=== PATIENT | male | born 1950 | race Caucasian/White ===

== ENCOUNTER 2020-03-10 18:19 | Emergency (ER) | payer OTHER, MEDICAID ==
[~2020-03-10] VITALS: Ht 177.8 cm; Wt 70.0 kg
--- NOTE | 2020-03-10 18:29 | PHYS DOC ---
General Adult EDM: Chief Complaint: HEAD INJURY/TRAUMA HPI: HPI: History obtained from caregiver. Patient is a 69-year-old male who has a history of autism who presents with complaint of fall. Caregiver states he was showering when she heard him fall to the ground. She states that when she arrived he had blood dripping from a cut to his right forehead. She denies loss of consciousness. He does not take blood thinners other than aspirin. Does have history of colon cancer that is been treated and is currently in remission. She does note he has a history of seizures with the last one occurred 20 years ago. She does not have suspicion for seizure at this time. She states he is currently acting at his baseline. Patient reports some mild head pain overlying his laceration site. Denies chest pain or shortness of breath. Denies back pain. Does live at home with caregivers and foster family. He does have 24/ supervision. Review of Systems: Review of Systems: Constitutional: Denies fever or chills. [] Eyes: Denies change in visual acuity. [] HENT: Denies nasal congestion or sore throat. [] Respiratory: Denies cough or shortness of breath. [] Cardiovascular: Denies chest pain or edema. [] GI: Denies abdominal pain, nausea, vomiting, bloody stools or diarrhea. [] : Denies dysuria. [] Musculoskeletal: Positive for fall Integument: Positive for laceration Neurologic: Denies headache, focal weakness or sensory changes. [] Endocrine: Denies polyuria or polydipsia. [] Lymphatic: Denies swollen glands. [] Psychiatric: Denies depression or anxiety. [] Heart Score: Risk Factors: Risk Factors: DM, Current or recent (<one month) smoker, HTN, HLP, family history of CAD, obesity. Risk Scores: Score 0 - 3: 2.5% MACE over next 6 weeks - Discharge Home Score 4 - 6: 20.3% MACE over next 6 weeks - Admit for Clinical Observation Score 7 - 10: 72.7% MACE over next 6 weeks - Early Invasive Strategies Current Medications: Current Medications Medications (Trade) Dose Ordered Sig/Antionette Start Time Stop Time Status Last Admin Dose Admin Lidocaine/ Epinephrine (LIDOCAINE 1%-EPI 1:100,000 Multi-Dose) 20 ml 1X ONCE 03/10/20 18:30 03/10/20 18:31 UNV Physical Exam: PE: Physical Exam Trauma: Primary Survey: Airway: Intact. Speaks in normal voice and phonation. Breathing: Breath sounds are clear and equal bilaterally. Circulation: Regular rhythm, 2+ and symmetric radial, DP and PT pulses. Disability: GCS on arrival was 15. Pupils 3 mm, ERRL Exposure: Complete exposure obtained and described in detail below. Secondary Survey: General: Awake, alert, appropriate, and in no acute distress HENT: 2.5 cm linear laceration noted to the right forehead. TMs clear bilaterally, no hemotympanum. No periorbital tenderness or deformity. No obvious craniofacial trauma. Midface is stable. No apparent dental or tongue/oropharyngeal injury. No septal hematoma. Neck: C-spine: no midline tenderness. Without step-off, deformity, abrasion, ecchymosis, or other signs of trauma. Paraspinal musculature with no tenderness and/or hypertonicity. Eyes: Pupils 3 mm ERRL, EOMI grossly, no evidence of ocular trauma, conjunctivae normal Respiratory: CTAB without wheezing, rhonchi, or rales. No distress. Chest wall with no tenderness to palpation. No crepitus, ecchymosis, or flail segment present. Cardiovascular: Regular rhythm without murmurs noted. 2+ and symmetric radial, DP and PT pulses. GI: Soft, non-tender, non-distended Musculoskeletal: T-spine: no midline tenderness. Without step-off, deformity, abrasion, ecchymosis, or other signs of trauma. Paraspinal musculature with no tenderness and/or hypertonicity. L-spine: no midline tenderness. Without step-off, deformity, abrasion, ecchymosis, or other signs of trauma. Paraspinal musculature with no tenderness and/or hypertonicity. RUE: Active ROM, no obvious deformity, no gross weakness or sensory deficits, warm & well-perfused LUE: Active ROM, no obvious deformity, no gross weakness or sensory deficits, warm & well-perfused RLE: Active ROM, no obvious deformity, no gross weakness or sensory deficits, warm & well-perfused LLE: Active ROM, no obvious deformity, no gross weakness or sensory deficits, warm & well-perfused Integument: Without abrasions, contusions, or lacerations. Neurologic: GCS on arrival as noted above. No obvious focal motor or sensory deficits on examination. Gait not assessed due to acuity of trauma assessment. Current Patient Data: Vital Signs: Vital Signs Date Time Temp Pulse Resp B/P (MAP) Pulse Ox O2 Delivery O2 Flow Rate FiO2 03/10/20 18:24 97.7 68 18 129/79 (96) 97 Room Air 97.7 EKG: EKG: [] Radiology/Procedures: Radiology/Procedures: [] Laceration Repair: Obtained verbal consent from patient. Time out done prior to procedure. No sedation was required. 1 Laceration(s) to right forehead. Sterile drape fashioned, following sterile procedure. Procedure: Laceration Repair Length: 3 cm Description: Clean wound edges Mechanism: Fall, blunt object Shape: Linear Complex: no The wound area was prepped and draped in a sterile fashion. The wound area was anesthetized with 1% lidocaine with epinephrine The wound was explored with the following results no signs of subgaleal involvement.. The wound was repaired with 6; 5-0 nylon sutures were used. The wound was dressed cleanly. The patient tolerated the procedure well. [facility] [address] [place] [address] IMAGING REPORT Signed PATIENT: CLEMENTE OLIVEROS DACCOUNT: [id number] : 1950 LOCATION: ER AGE: 69 SEX: M EXAM STATUS: REG ER ORD. PHYSICIAN: MARTHA KWAN DO REASON: fall PROCEDURE: CHEST AP ONLY INDICATION: Reason: fall / Spl. Instructions: / History: COMPARISON: None. FINDINGS: Single view of chest obtained. Mild hypoexpansion with mildly prominent cardiac silhouette. There is some widening of the coracoclavicular distance on the right compared to the left. On the right this measures 15 mm and on the left this measures 8mm. There is angulation of some of the right RIBS including the fifth and 6 posteriorly. No focal airspace consolidation. IMPRESSION: * No focal airspace consolidation. * There is angulation of a couple of the right ribs posteriorly. Could be secondary to a fracture of unknown age. Would correlate with symptoms in the area. * Widening of the right coracoclavicular distance in comparison to left which could be seen with coracoclavicular ligament injury of unknown age. Correlate for symptoms in the region. Electronically signed by: Tobi Prieto MD (03/10/2020 8:11 PM) [id number] DICTATED and SIGNED BY: TOBI PRIETO MD DATE: 03/10/202010 [facility] [address] [place] [address] IMAGING REPORT Signed PATIENT: CLEMENTE OLIVEROS DACCOUNT: [id number] : 1950 LOCATION: ER AGE: 69 SEX: M EXAM STATUS: REG ER ORD. PHYSICIAN: MARTHA KWAN DO REASON: fall, RT HIP PAIN PROCEDURE: PELVIS Exam: Pelvis 1 view INDICATION: Fall, right hip pain TECHNIQUE: Frontal view of the pelvis Comparisons: None FINDINGS: Bone mineralization is normal. No acute or healed fractures. There is mild to moderate osteoarthritic change at the hip joints bilaterally. Soft tissues are unremarkable. IMPRESSION: No acute osseous abnormality identified. Electronically signed by: Temi Coyne MD (03/10/2020 8:11 PM) [facility] DICTATED and SIGNED BY: TEMI COYNE MD DATE: 03/10/202010 [facility] [address] [place] [address] IMAGING REPORT Signed PATIENT: CLEMENTE OLIVEROS DACCOUNT: [id number] : 1950 LOCATION: ER AGE: 69 SEX: M EXAM STATUS: REG ER ORD. PHYSICIAN: MARTHA KWAN DO REASON: fall, HEAD INJURY PROCEDURE: CT HEAD AND CERVICAL SPINE WO CT scan of the head without contrast 03/10/2020 Clinical History: Fall with head injury. Technique: Unenhanced, contiguous, 5 mm axial sections were obtained through the head. One or more of the following individualized dose reduction techniques were utilized for this study: 1. Automated exposure control. 2. Adjustment of the mA and/or kV according to patient size. 3. Use of iterative reconstruction technique. Findings: There is generalized parenchymal atrophy. Areas of decreased attenuation are seen within the periventricular and subcortical white matter of both cerebral hemispheres consistent with areas of small vessel ischemic disease. No acute parenchymal abnormality is seen. No extra-axial fluid collection is noted. No skull fracture is seen. Bilateral phthisis bulbi is noted. Impression: No acute intracranial abnormality is seen. CT scan of the cervical spine without contrast 03/10/2020 Clinical history: Fall with neck injury. Technique: Unenhanced, contiguous, 0.625 mm axial sections were obtained through the cervical spine. Axial, coronal and sagittal reconstructed images were obtained. One or more of the following individualized dose reduction techniques were utilized for this study: 1. Automated exposure control. 2. Adjustment of the mA and/or kV according to patient size. 3. Use of iterative reconstruction technique. Findings: Sagittal and coronal reconstructed images demonstrate straightening of the normal cervical lordosis. Degenerative changes consisting of varying degrees of disc space narrowing, vertebral endplate sclerosis and mild to moderate anterior and posterior vertebral body osteophyte formation are seen throughout the cervical disc spaces. Atherosclerotic calcification is seen in the region of the carotid bifurcations No fracture or subluxation of the cervical vertebrae seen. Degenerative changes are seen involving the uncovertebral and facet joints throughout the cervical disc spaces. Impression: No fracture or subluxation of the cervical vertebra is identified. Electronically signed by: Jhonathan Saldaña MD (03/10/2020 7:13 PM) [id number] DICTATED and SIGNED BY: JHONATHAN SALDAÑA MD DATE: 03/10/201912 Course & Med Decision Making: Course & Med Decision Making Pertinent Labs and Imaging studies reviewed. (See chart for details) [] Patient is a very pleasant 69-year-old male who presents with complaint of head laceration status post mechanical fall. Initial vital signs unremarkable. Laceration repaired at bedside. See procedure note for further details. CT imaging of the head and neck without acute traumatic injury. Chest x-ray did show rib abnormality on the right. No overlying point tenderness appreciated on exam. Likely chronic in nature. At this time I do for the patient's appropriate for discharge home. He does have 24/7 care and supervision at home. Return precautions were discussed and understood by the patient's caregiver. Instructed to follow-up with his primary care physician in the next 2 to 3 days. Stable for discharge. Dragon Disclaimer: Candi Disclaimer: This electronic medical record was generated, in whole or in part, using a voice recognition dictation system. Departure Departure Impression: Primary Impression: Fall Qualified Codes: W19.XXXA - Unspecified fall, initial encounter Additional Impression: Laceration of head Qualified Codes: S01.01XA - Laceration without foreign body of scalp, initial encounter Disposition: DC HOME SELF CARE/HOMELESS Condition: STABLE Patient Instructions: Laceration Care, Adult Additional Instructions: Please follow-up with your primary care physician in the next 2 to 3 days. [facility] [address] [place] [address] [facility] [address] [place] [address] [facility] [address] [place] [address] [facility] [address] [place] [address] [facility] [address] [place] [address] [address] [place] [address] [facility] [address] [place] [address] [facility] [address] [place] [address] [facility] [address] [place] [address] [facility] [address] [place] [address] MARTHA KWAN DO Mar 10, 2020 18:29
[2020-03-10] MEDS ORDERED: LIDOCAINE 1%/EPI 1:100,000 20 ML VIAL. INJ ONE (18:30)
--- NOTE | 2020-03-10 19:16 | RAD ---
CT scan of the head without contrast 03/10/2020 Clinical History: Fall with head injury. Technique: Unenhanced, contiguous, 5 mm axial sections were obtained through the head. One or more of the following individualized dose reduction techniques were utilized for this study: 1. Automated exposure control. 2. Adjustment of the mA and/or kV according to patient size. 3. Use of iterative reconstruction technique. Findings: There is generalized parenchymal atrophy. Areas of decreased attenuation are seen within the periventricular and subcortical white matter of both cerebral hemispheres consistent with areas of small vessel ischemic disease. No acute parenchymal abnormality is seen. No extra-axial fluid collection is noted. No skull fracture is seen. Bilateral phthisis bulbi is noted. Impression: No acute intracranial abnormality is seen. CT scan of the cervical spine without contrast 03/10/2020 Clinical history: Fall with neck injury. Technique: Unenhanced, contiguous, 0.625 mm axial sections were obtained through the cervical spine. Axial, coronal and sagittal reconstructed images were obtained. One or more of the following individualized dose reduction techniques were utilized for this study: 1. Automated exposure control. 2. Adjustment of the mA and/or kV according to patient size. 3. Use of iterative reconstruction technique. Findings: Sagittal and coronal reconstructed images demonstrate straightening of the normal cervical lordosis. Degenerative changes consisting of varying degrees of disc space narrowing, vertebral endplate sclerosis and mild to moderate anterior and posterior vertebral body osteophyte formation are seen throughout the cervical disc spaces. Atherosclerotic calcification is seen in the region of the carotid bifurcations No fracture or subluxation of the cervical vertebrae seen. Degenerative changes are seen involving the uncovertebral and facet joints throughout the cervical disc spaces. Impression: No fracture or subluxation of the cervical vertebra is identified. Electronically signed by: Jhonathan Saldaña MD (03/10/2020 7:13 PM) [id number]
[2020-03-10 20:00] VITALS: BP 119/59
--- NOTE | 2020-03-10 20:13 | RAD ---
Exam: Pelvis 1 view INDICATION: Fall, right hip pain TECHNIQUE: Frontal view of the pelvis Comparisons: None FINDINGS: Bone mineralization is normal. No acute or healed fractures. There is mild to moderate osteoarthritic change at the hip joints bilaterally. Soft tissues are unremarkable. IMPRESSION: No acute osseous abnormality identified. Electronically signed by: Temi Bourgeois MD (03/10/2020 8:11 PM) SLY
--- NOTE | 2020-03-10 20:14 | RAD ---
INDICATION: Reason: fall / Spl. Instructions: / History: COMPARISON: None. FINDINGS: Single view of chest obtained. Mild hypoexpansion with mildly prominent cardiac silhouette. There is some widening of the coracoclavicular distance on the right compared to the left. On the right this measures 15 mm and on the left this measures 8mm. There is angulation of some of the right RIBS including the fifth and 6 posteriorly. No focal airspace consolidation. IMPRESSION: * No focal airspace consolidation. * There is angulation of a couple of the right ribs posteriorly. Could be secondary to a fracture of unknown age. Would correlate with symptoms in the area. * Widening of the right coracoclavicular distance in comparison to left which could be seen with coracoclavicular ligament injury of unknown age. Correlate for symptoms in the region. Electronically signed by: Cecilio Mackey MD (03/10/2020 8:11 PM) [id number]
== END 2020-03-10 20:35 | disposition home or self-care (01) ==
LOC: ER 18:19
DX: S01.81XA Laceration without foreign body of other part of head, initial encounter (principal); M25.551 Pain in right hip; R07.89 Other chest pain; F84.0 Autistic disorder; W18.39XA Other fall on same level, initial encounter; Y93.89 Activity, other specified; Y92.89 Other specified places as the place of occurrence of the external cause; Y99.8 Other external cause status
CPT/HCPCS: 12013; 70450; 71045; 72125; 72170; 99285-25